=== PATIENT | female | born 1995 | race Caucasian/White ===

== ENCOUNTER 2018-01-30 10:28 | Day surgery (SDC) | payer BC, MEDICAID ==
[~2018-01-30 10:28] MED LIST: Lactated Ringers 1,000 ML IV SCH; Sodium Chloride 0.9% 10 ML Syringe FLUSH PRN
[2018-01-30] MEDS ORDERED: fentaNYL 100 MCG/2 ML SDV IV ONE (12:40)
[2018-01-30] MEDS ORDERED: Midazolam 1 MG/ML 2 ML SDV IV ONE (12:40)
[2018-01-30] MEDS ORDERED: Propofol 200 MG/20 ML SDV IV ONE (12:40)
--- NOTE | 2018-01-30 12:41 | PCM.PN ---
- General Info Date of Service: 01/30/18 - Review of Systems Systems Review Comment:: 22 y/o female with history of unexplained vomiting and change in bowel habits here for EGD and Colonoscopy. She is medically stable to proceed without any significant recent change from her history of physical. Questions answered and she agrees to proceed. - Patient Data Vitals - Most Recent: Last Vital Signs Temp 97.8 F 01/30/18 10:53 Pulse 86 01/30/18 10:53 Resp 18 01/30/18 10:53 BP 121/67 01/30/18 10:53 Pulse Ox 99 01/30/18 10:53 Weight - Most Recent: 174 lb Lab Results Last 24 Hours: Laboratory Results - last 24 hr 01/30/18 Range/Units 10:42 Urine HCG, Qual Negative (NEGATIVE) Med Orders - Current: Current Medications Lactated Ringer's (Ringers, Lactated) 1,000 mls @ 125 mls/hr IV ASDIRECTED FREDDIE Last Admin: 01/30/18 11:10 Dose: 125 mls/hr Sodium Chloride (Saline Flush) 10 ml FLUSH ASDIRECTED PRN PRN Reason: Keep Vein Open - Problem List Review Problem List Initiated/Reviewed/Updated: Yes - My Orders Last 24 Hours: My Active Orders 01/29/18 17:48 Resuscitation Status Routine 01/30/18 09:45 Patient Status [ADT] Routine Verify Patient Consent Obtain [RC] ASDIRECTED Lactated Ringers [Ringers, Lactated] 1,000 ml IV ASDIRECTED Sodium Chloride 0.9% [Saline Flush] 10 ml FLUSH ASDIRECTED PRN Peripheral IV Insertion Adult [OM.PC] Routine - Assessment Assessment:: Vomiting and change in bowel habits - Plan Plan:: EGD and Colonoscopy
--- NOTE | 2018-01-30 13:30 | PCM.OPNOTE ---
- General Post-Op/Procedure Note Date of Surgery/Procedure: 01/30/18 Operative Procedure(s): EGD with Biopsy. Colonoscopy with Biopsy Findings: Normal appearing upper and lower endoscopy Pre Op Diagnosis: Abdominal Pain. Change in Bowel Habits Post-Op Diagnosis: Same Anesthesia Technique: MAC Primary Surgeon: Mihai Leyva Pathology: Biopsies of Duodenum, Gastric Antrum, GE Jct, Terminal ileum and colon Output, Urine Amount: 0 EBL in mLs: 4 Complications: None Condition: Good
--- NOTE | 2018-01-30 18:32 | OR ---
DATE OF OPERATION: 01/30/2018 SURGEON: Mihai Leyva MD PREOPERATIVE DIAGNOSES: Abdominal pain, vomiting, and change in bowel habits. POSTOPERATIVE DIAGNOSES: Abdominal pain, vomiting, and change in bowel habits with normal upper and lower endoscopy. OPERATION PERFORMED: Esophagogastroduodenoscopy with biopsy and colonoscopy with biopsy. INDICATIONS FOR SURGERY: This 22-year-old female has been having a several month history of frequent vomiting, which is unexplained. She has also had change in bowel habits and abdominal pain. She comes now for diagnostic upper and lower endoscopy. FINDINGS: The structures viewed during upper and lower endoscopy included the esophagus, stomach, and duodenum as well as the terminal ileum and colon. All of the structures appeared normal. PROCEDURE IN DETAIL: The patient was taken to the procedure room. She was given intravenous sedation and with her in the left lateral decubitus position, after mouth gag was inserted, the esophagus was intubated with the Olympus gastroscope. This was carefully advanced under direct visualization through the esophagus, stomach, and into the duodenum where examination to the fourth portion was performed. Careful examination of the duodenum was carried out and random biopsies of the duodenal mucosa were taken. The scope was withdrawn back into the stomach, where full examination including retroflexed examination of the fundus was performed. Biopsies of the gastric antrum were taken to rule out H. pylori. The GE junction is also carefully examined and biopsies were taken here as well. The esophagus was then examined as the scope was withdrawn. Attention was turned to colonoscopy. Digital rectal exam was performed showing no rectal masses. The Olympus colonoscope was inserted into the rectum. Retroflexed examination of the rectal canal was performed. The scope was then carefully advanced under direct visualization through the entire length of the colon until the cecum was reached. Cecal acquisition was confirmed by noting the normal internal cecal anatomy including the appendiceal orifice and ileocecal valve. The ileocecal valve was cannulated and the terminal ileum was examined. This also appeared normal. Random biopsies of the terminal ileum were taken. The scope was withdrawn back into the colon, where re-examination of the colonic segments were carried out as the scope was withdrawn. Random biopsies were taken of the right and left colon to investigate the patient's symptoms during scope withdrawal. After the examination had been completed and with no sign of any bleeding or other complications, the scope was removed and the patient was taken from the procedure room in satisfactory condition. ESTIMATED BLOOD LOSS: 4 mL. COMPLICATIONS: None. PROGNOSIS: Good. /[id number] DERICK/OBI
== END 2018-01-30 14:27 | disposition home or self-care (01) ==
LOC: FB.SDS 10:28
PROVIDERS: ATTEND Surgery
DX: K29.50 Unspecified chronic gastritis without bleeding (principal); K20.9 Esophagitis, unspecified
CPT/HCPCS: 43239; 45380; 81025; 88305; 88313; 88342; J2250; J2704; J3010; J7120

== ENCOUNTER 2021-09-13 13:17 | Emergency (ER) | payer BC ==
[2021-09-13] MEDS ORDERED: Ondansetron 4 MG/2 ML SDV IVPUSH ONE (13:46)
[2021-09-13] MEDS ORDERED: Sodium Chloride 0.9% 10 ML Syringe FLUSH PRN (13:46)
--- NOTE | 2021-09-13 13:57 | EDM.PDOC ---
ED HPI GENERAL MEDICAL PROBLEM - General Stated Complaint: N/V/D Time Seen by Provider: 09/13/21 13:25 Source of Information: Reports: Patient History Limitations: Reports: No Limitations - History of Present Illness INITIAL COMMENTS - FREE TEXT/NARRATIVE: Patient presented to the ED because of N/V/D x 1 week. She said she can't keep anything down. Her stool is mostly watery. She also c/o cramping abdominal pain, no fever or chills. Bilateral Lower Abdomen Pain Score (Numeric/FACES): 4 - Related Data Allergies Allergy/AdvReac Type Severity Reaction Status Date / Time No Known Allergies Allergy Verified 01/14/18 10:20 Home Meds: Home Meds Ondansetron [Zofran ODT] 4 mg PO Q6H PRN #5 tab.dis 09/13/21 [Rx] Past Medical History Other Gastrointestinal History: nausea vomiting change in bowel habits and right upper abd pain Social & Family History - Caffeine Use Caffeine Use: Reports: Soda ED ROS GENERAL - Review of Systems Review Of Systems: See Below Constitutional: Reports: No Symptoms HEENT: Reports: No Symptoms Respiratory: Reports: No Symptoms Cardiovascular: Reports: No Symptoms Endocrine: Reports: No Symptoms GI/Abdominal: Reports: Diarrhea, Nausea, Vomiting : Reports: No Symptoms Musculoskeletal: Reports: No Symptoms Skin: Reports: No Symptoms Neurological: Reports: No Symptoms Psychiatric: Reports: No Symptoms ED EXAM, GI/ABD - Physical Exam Exam: See Below Exam Limited By: No Limitations General Appearance: Alert, No Apparent Distress Ears: Normal External Exam, Normal Canal, Hearing Grossly Normal Nose: Normal Inspection, Normal Mucosa, No Blood Throat/Mouth: Normal Inspection, Normal Lips Head: Atraumatic, Normocephalic Neck: Normal Inspection, Supple, Non-Tender, Full Range of Motion Respiratory/Chest: No Respiratory Distress, Lungs Clear, Normal Breath Sounds, No Accessory Muscle Use, Chest Non-Tender Cardiovascular: Normal Peripheral Pulses, Regular Rate, Rhythm, No Edema, No Gallop GI/Abdominal Exam: Normal Bowel Sounds, Soft, Non-Tender, No Organomegaly, No Distention, No Abnormal Bruit Back Exam: Normal Inspection, Full Range of Motion Extremities: Normal Inspection, Normal Range of Motion, Non-Tender, No Pedal Edema, Normal Capillary Refill Neurological: Alert, Oriented, CN II-XII Intact Course - Vital Signs Text/Narrative:: Lab result was reviewed and discussed with patient NS 1 L bolus Zofran 4 mg IV x1 Last Recorded V/S: Last Vital Signs Temp 37.2 C 09/13/21 14:01 Pulse 75 09/13/21 15:01 Resp 20 09/13/21 15:01 BP 130/72 09/13/21 15:01 Pulse Ox 99 09/13/21 15:01 - Orders/Labs/Meds Orders: Active Orders 24 hr Category Date Time Status Saline Lock Insert [OM.PC] Routine Oth 09/13/21 13:46 Ordered Labs: Laboratory Tests 09/13/21 09/13/21 Range/Units 14:08 14:08 WBC 6.9 (3.0-10.3) x10-3/uL RBC 4.59 (3.60-5.20) x10(6)uL Hgb 13.4 (11.4-15.5) g/dL Hct 41.2 (34.2-48.2) % MCV 89.7 (76.7-100.5) fL MCH 29.3 (23.9-33.9) pg MCHC 32.6 (31.9-34.8) g/dL RDW 14.0 (12.3-16.5) % Plt Count 312 (151-488) x10(3)uL MPV 6.9 L (7.1-12.4) fL Neut % (Auto) 59.8 (30.8-76.2) % Lymph % (Auto) 31.0 (18.4-52.1) % [place] % (Auto) 5.2 (4.4-15.7) % Eos % (Auto) 3.2 (0.6-8.1) % Baso % (Auto) 0.8 (0.2-1.5) % Neut # (Auto) 4.1 (1.5-6.3) x10-3/uL Lymph # (Auto) 2.1 (1.0-4.4) x10-3/uL [place] # (Auto) 0.4 (0.3-1.0) x10-3/uL Eos # (Auto) 0.2 (0.0-0.8) x10-3/uL Baso # (Auto) 0.1 (0.0-0.1) x10-3/uL Sodium 140 (135-145) mmol/L Potassium 3.9 (3.5-5.3) mmol/L Chloride 104 (100-110) mmol/L Carbon Dioxide 28 (21-32) mmol/L BUN 11 (7-18) mg/dL Creatinine 0.9 (0.55-1.02) mg/dL Est Cr Clr Drug Dosing TNP Estimated GFR (MDRD) > 60 (>60) BUN/Creatinine Ratio 12.2 (9-20) Glucose 96 (80-116) mg/dL Calcium 9.0 (8.6-10.2) mg/dL Meds: Medications Discontinued Medications Generic Name Dose Route Start Last Admin Trade Name Freq PRN Reason Stop Dose Admin Sodium Chloride 1,000 mls @ 999 mls/hr 09/13/21 14:00 09/13/21 14:14 Normal Saline IV 999 mls/hr ASDIRECTED FREDDIE Administration Ondansetron HCl 4 mg 09/13/21 13:46 09/13/21 14:15 Ondansetron 4 Mg/2 Ml Sdv IVPUSH 09/13/21 13:47 4 mg ONETIME ONE Administration Sodium Chloride 10 ml 09/13/21 13:46 09/13/21 14:12 Sodium Chloride 0.9% 10 Ml Syringe FLUSH 10 ml ASDIRECTED PRN Administration Keep Vein Open Departure - Departure Time of Disposition: 15:00 Disposition: Home, Self-Care 01 Condition: Good Clinical Impression: Gastroenteritis - Discharge Information Prescriptions: Ondansetron [Zofran ODT] 4 mg PO Q6H PRN #5 tab.dis PRN Reason: Nausea Instructions: Viral Gastroenteritis, Adult, [id number], Dehydration, Adult, [id number] Referrals: Christine Corado DES[facility]IE[facility]ENANT [Primary Care Provider] - Forms: ED Department Discharge Additional Instructions: Please read discharge instructions on gastroenteritis/stomach flu and dehydration Frequent hand washing Drink 2 liters of water daily while being treated Zofran ODT 4mg every 4 hours as needed for nausea Follow up as needed Sepsis Event Note (ED) - Focused Exam Vital Signs: Vital Signs Temp Pulse Resp BP Pulse Ox 09/13/21 15:01 75 20 130/72 99 09/13/21 14:46 78 20 132/70 100 09/13/21 14:31 75 20 125/68 100 09/13/21 14:16 83 20 141/88 H 99 09/13/21 14:01 37.2 C 86 20 135/80 99 09/13/21 13:46 84 20 131/70 100 09/13/21 13:17 37.3 C 96 20 122/80 99 - My Orders Last 24 Hours: My Active Orders 09/13/21 13:46 Saline Lock Insert [OM.PC] Routine - Assessment/Plan Last 24 Hours: My Active Orders 09/13/21 13:46 Saline Lock Insert [OM.PC] Routine
[2021-09-13] MEDS ORDERED: Sodium Chloride 0.9% 1,000 ML IV SCH (14:00)
== END 2021-09-13 15:20 | disposition home or self-care (01) ==
LOC: FB.ED 13:17
DX: K52.9 Noninfective gastroenteritis and colitis, unspecified (principal)
CPT/HCPCS: 36415; 80048; 85025; 96361; 96374; 99284; J2405; J7030